=== PATIENT | female | born 1980 | race Caucasian/White ===

== ENCOUNTER 2023-06-26 01:27 | Inpatient (IN) | payer OTHER, SELFPAY ==
[2023-06-26 01:36] VITALS: BP 100/60; BP 141/68; PULSE 83; PULSE 90; RESP 20; TEMP 36.6; O2SAT 93; O2SAT 97; BMI 39.2
--- NOTE | 2023-06-26 03:11 | ED.OVERDOSE ---
HPI - Overdose General Chief Complaint: Overdose Stated Complaint: OD Time Seen by Provider: 06/26/23 03:10 Source: patient Mode of arrival: EMS Limitations: no limitations History of Present Illness HPI Narrative: Patient comes to the emergency room after overdosing using heroin. Patient admits to using heroin, denies using alcohol or any other drugs. According to the patient, she believes that her [id number] call 911, patient was given 8 mg of intranasal Narcan. Patient states that this was an accidental overdose, does not have suicidal or homicidal ideation. Otherwise feels well. No nausea or vomiting. Related Data Allergies Allergy/AdvReac Type Severity Reaction Status Date / Time No Known Allergies Allergy Verified 06/26/23 01:38 Review of Systems Review of Systems: Constitutional : No Weight loss, No Fever, No Chills, No Night Sweats, No Fatigue, No Malaise ENT/Mouth : No Hearing loss, No Ear Pain, No Nasal Congestion, No Sinus Pain, No Hoarseness, No sore throat, No Rhinorrhea, No Swallowing Difficulty Eyes: No Eye Pain, No Swelling, No Redness, No Foreign Body, No Discharge, No Vision Changes Cardiovascular : No Chest Pain, No SOB, No Dyspnea on Exertion, No Orthopnea, No Edema, No Palpitations Respiratory : No Cough, No Sputum, No Wheezing, No Smoke Exposure, No Dyspnea Gastrointestinal : No Nausea, No Vomiting, No Diarrhea, No Constipation, No abdominal Pain, No Hematochezia, No Melena Genitourinary : no irregular bleeding, No Dysuria, No Urinary Frequency, No Hematuria, No Urinary Incontinence, No Urgency, No Flank Pain, No Urinary Flow Changes, No Hesitancy Musculoskeletal : No joint pain, No Myalgias, No Joint Swelling Skin : No Skin Lesions, No rash Neuro : No Weakness, No Numbness, No Paresthesias, No Loss of Consciousness, No Dizziness, No Headache Psych : No Anxiety/Panic, No Depression, No SI/HI/AH/VH, admits to heroin abuse Heme/Lymph: No Bruising, No Bleeding,No Lymphadenopathy Endocrine : No Polyuria, No Polydipsia, No Temperature Intolerance PMFSH Past Medical History Medical History (Updated 06/26/23 @ 03:15 by Edith Trevino MD) Heroin abuse Physical Exam Vital Signs: Vital Signs: Last Vital Signs Temp 97.8 F 06/26/23 01:36 Pulse 83 06/26/23 01:36 Resp 20 06/26/23 01:36 BP 141/68 H 06/26/23 01:36 Pulse Ox 97 06/26/23 01:36 O2 Del Method Nasal Cannula 06/26/23 01:36 Oxygen Flow Rate 3.5 06/26/23 01:36 BMI result Body Mass Index 39.2 Const: Other: Appearance: Alert. Oriented X3. No acute distress. Eyes: Pupils equal, round and reactive to light. ENT: Pharynx normal. Neck: Normal inspection. Neck supple. No lymph nodes noted. No crepitus CVS: Normal heart rate and rhythm. Pulses normal. Normal S1 and S2 Respiratory: No respiratory distress. Breath sounds normal. No Wheezing. No rales Abdomen: Soft and nontender. No rigidity. No distention. Skin: Skin warm and dry. Normal skin color. Normal skin turgor. Extremities: No lower extremity edema. No Lacerations. No Rash Neuro: Oriented X 3. No motor deficit. No sensory deficit. Moving all extremities. No slurred speech. CN 2 through 12 grossly intact Psych: calm, cooperative, normal affect Medical Decision Making Medical Decision Making MDM Narrative: -patient is awake, alert and oriented x3, oxygen saturation 97% on room air. -patient denies SI or HI, blood pressure stable. -patient is not on a Section 12, not indicated. -discussed with the patient that we will observe for couple of hours, once she feels completely back to baseline and she keeps her oxygen saturation at a normal level, patient can be discharged -patient will be given home Narcan -patient states that she has not interested in resources for drug addiction. CARe team declined by patient Differential Diagnosis Differential Diagnoses: The differential diagnosis associated with the presentation includes (Polysubstance abuse, anxiety, depression) Critical Care Time Critical Care Time Critical Care Time: Yes Total Critical Care Time: 35 Attestation: I have personally provided critical care time. Time includes review of lab data, radiology results, discussion with consultants, and monitoring for potential decompensation. Intervention performed as documented. Discharge Plan Discharge Clinical Impression: Accidental drug overdose Patient Disposition: Home, Self-Care Instructions: Adult Overdose (ED) Additional Instructions: Please follow-up with your primary care physician tomorrow. If you have any worsening or new symptoms, please return to the emergency room or call 911 Print Language: [place] Island[place]
[2023-06-26 05:18] VITALS: BP 121/56; PULSE 85; RESP 16; O2SAT 94
[2023-06-26 07:21] VITALS: BP 117/60; PULSE 84; RESP 16; TEMP 37.1; O2SAT 97
--- NOTE | 2023-06-26 08:10 | PC.NURSE ---
assumed care of pt at 0700. pt sleeping soundly. rr even/unlabored. pt initially on 3L O2 via NC sating 97%. pt taken off O2. now on room air pt sating 92-94%. call oliva within reach. plan of care ongoing.
--- NOTE | 2023-06-26 08:18 | PC.NURSE ---
pt found sating 91% on room air. placed on 1L O2 now sating 94%.
[2023-06-26 12:47] LABS: Appearance Urine Cloudy; Color Urine Yellow; Glucose Urine UA >=1000 mg/dL (Negative); Leukocyte Esterase Urine Negative (Negative); Nitrite Urine Negative (Negative); PH 5.5 (5.0-9.0); Specific Gravity - Urine >= 1.030 (1.005-1.025); UMIC TRIGGER UACC YES; Urine Blood Negative (Negative); Urine Ketones Negative (Negative); Urine Protein 30 (1+) mg/dL (Neg-Trace)
[2023-06-26 12:50] LABS: Bacteria Urine None Seen (None Seen); RBC Urine 0-2 /HPF (0-2); WBC Urine 0-5 /HPF (0-5)
--- NOTE | 2023-06-26 13:15 | HO.ADDICT_ITS ---
History of Present Illness Date of Service: 06/26/2023 Chief Complaint: OD Reason for Consult: overdose Discussed with referring provider: Yes Sources of Information: patient interviewed and chart reviewed HPI Narrative: Patient is a 42 year old female seen in the ED following overdose at home requiring naloxone. Initially patient declined SUDE or any discussion with anyone regarding substance use, however this morning changed her mind. Patient seen by this press writer in main ED. Laying on stretcher, initially asleep, but woke easily to voice, and then engaged in interview. She reports many years of substance use and various levels of treatment including inpatient and outpatient. Currently engaged din treatment at [facility] --dose verified by this press writer as 45mg daily. She states she used 2 bags of heroin/fentnayl yesterday in an effort to overdose. She reports that she has struggled with suicidal feelings for many years and is just tired of feeling like I don't want to be alive anymore . Reports previous psychiatric admissions, most recent at [facility] in November. She is engaged with psychiatric provider. Identifies behavioral health and suicidal ideation as precipitant to overdose. Medical Evaluation Reviewed: Yes Review of Systems Constitutional: Reports as per HPI Diagnostics Vital Signs (24Hr): Vital Signs - 24 hr 06/26/23 01:36 06/26/23 05:18 06/26/23 07:21 Temperature 97.8 F 98.7 F Pulse Rate 83 85 84 Respiratory Rate 20 16 16 Blood Pressure 141/68 H 121/56 L 117/60 Pulse Oximetry 97 94 97 Oxygen Delivery Method Nasal Cannula Nasal Cannula Nasal Cannula Oxygen Flow Rate 3 3 BMI result Body Mass Index 39.2 Labs Labs: Laboratory Results - last 48 hr 06/26/23 12:40 Urine Color Yellow Urine Appearance Cloudy Urine pH 5.5 Ur Specific [place] >= 1.030 H Urine Protein 30 (1+) H Urine Glucose (UA) >=1000 H Urine Ketones Negative Urine Blood Negative Urine Nitrite Negative Ur Leukocyte Esterase Negative Urine RBC 0-2 Urine WBC 0-5 Ur Squamous Epith Cells 6-10 Urine Bacteria None Seen Hyaline Casts 3-5 Mental Status Exam Mental Status Exam Patient Appearance: Appropriate Level of Consciousness: Awake and Appropriate Patient Behavior: Appropriate and Talkative Mood Description: Calm Affect Description: Calm Speech Pattern: Clear Medications Allergies Allergies Allergy/AdvReac Type Severity Reaction Status Date / Time No Known Allergies Allergy Verified 06/26/23 01:38 Assessment & Plan Assessment & Plan (1) Opioid use disorder: Status: Acute Code(s): F11.90 - Opioid use, unspecified, uncomplicated Assessment and Plan: * methadone 45mg verified and ordered * ED provider made aware of suicidal ideation and patient request for crisis evaluation * no follow up indicated at this time from [facility] Total time managing care of this patient today __30__ minutes. PMFSH Past Medical History Medical History (Updated 06/26/23 @ 13:47 by Lisa Dave CNP) Heroin abuse Social History Social History Advance Directives: No
--- NOTE | 2023-06-26 13:48 | PM.EVENT ---
Event Note Date of Service: 06/26/23 Event Note: methadone verification completed by this commercial insurance underwriter MARICRUZ Ruby OTP -last in person dose 45mg on 06/20/2023 -provided 6 take home bottles with end date being today, 06/26/23 Time Spent With Patient Time: Total time managing care of this patient today ____ minutes.
[2023-06-26 14:01] LABS: MANUAL DIFF FLAG NO
[2023-06-26 14:02] LABS: Basophils Percent Auto 0.2 % (0-2); Hematocrit 31.8 % (37.0-47.0); Hemoglobin 10.5 g/dl (12.0-16.0); Imm Gran Abs Auto 0.03 X10*3/uL (0.00-0.03); Imm Gran Pct Auto 0.2 % (0.0-0.4); Lymphocytes Absolute Auto 1.7 X10*3/uL (1.2-4.9); Lymphocytes Percent Auto 13.2 % (20-40); Mean Corpuscular Hemoglobin 26.6 pg (27.0-33.0); Mean Corpuscular Volume 80.5 fL (80.0-98.0); Mean Platelet Volume 9.1 fL (9.4-12.3); Monocytes Absolute Auto 0.7 X10*3/uL (0.1-1.2); Monocytes Percent Auto 5.2 % (2-11); Neutrophils Absolute Auto 10.7 x10*3/uL (2.0-8.3); Neutrophils Percent Auto 81.2 % (45-73); Platelet Count 281 X10*3/uL (160-400); Red Blood Count 3.95 X10*6/uL (4.20-5.50); Red Cell Distribution Width 13.1 % (11.0-16.0); White Blood Count 13.2 X10*3/uL (4.8-10.8)
--- NOTE | 2023-06-26 14:15 | PC.NURSE ---
PT TRANSFERRED TO ED POD.
[2023-06-26] MEDS: methADONE HCl 20 MG/2 ML ORAL.CONC 45 MG PO (14:16)
[2023-06-26 14:19] LABS: Alanine Aminotransferase 12 U/L (0-31); Albumin Level 3.5 g/dL (3.5-5.0); Alkaline Phosphatase 72 U/L (39-117); Anion Gap 10 (12-20); Aspartate Amino Transferase 16 U/L (5-31); Bilirubin Total 0.3 mg/dL (0.0-1.0); Blood Urea Nitrogen 13 mg/dL (9-16); Calcium 8.3 mg/dL (8.4-10.2); Carbon Dioxide 24 mmol/L (22-29); Chloride 108 mmol/L (96-108); Creatinine Clr Calc Pharmacy 156.1; Estimated Glomerular Filt Rate > 60; Glucose Random 100 mg/dL (60-115); Potassium 4.2 mmol/L (3.3-5.1); Sodium 138 mmol/L (135-145)
[2023-06-26 14:20] LABS: Amphetamine Screen Urine Not Detected (Not Detect); Barbiturates, Urine Not Detected (Not Detect); Benzodiazepines Screen Urine Not Detected (Not Detect); Cannabinoid Screen Urine Not Detected (Not Detect); Cocaine Screen Urine POSITIVE (Not Detect); Fentanyl, urine POSITIVE (Not Detect); Opiate Screen Urine POSITIVE (Not Detect); Phencyclidine Screen Urine POSITIVE (Not Detect)
[2023-06-26 15:08] VITALS: BP 120/47; PULSE 74; RESP 17; TEMP 36.6; O2SAT 92
--- NOTE | 2023-06-26 17:40 | PC.NURSE ---
PT SEEN BY CARE TEAM, PT AWARE OF PLAN OF CARE. PT IS AN INPATIENT BED SEARCH.
[2023-06-26 17:56] VITALS: O2SAT 96
--- NOTE | 2023-06-26 18:11 | MHC.CARE ---
CARE Team evaluation complete. Pt is an [facility] bedsearch and is on a section 12A for safety. ED provider, POD RN and Pt are aware of disposition.
[2023-06-27 00:03] VITALS: RESP 16
--- NOTE | 2023-06-27 00:14 | PC.NURSE ---
Patient appears to be sleeping, respirations even and unlabored, no apparent distress at this time
[2023-06-27 03:05] VITALS: BP 143/57; PULSE 73; RESP 18; TEMP 36.6; O2SAT 94
--- NOTE | 2023-06-27 07:32 | PHA.MEDREC ---
Pharmacy Consult ? Medication Reconciliation Pharmacy has completed the medication reconciliation. Reviewed med rec done by nursing
--- NOTE | 2023-06-27 07:39 | HE.PHANOTE ---
RE: methadone confirmed by Lisa Dave last dose take home 45mg on 06/25
[2023-06-27] MEDS: ARIPiprazole 10 MG TABLET PO (07:52)
[2023-06-27] MEDS: OXcarbazepine 300 MG TABLET 600 MG PO (07:52)
[2023-06-27] MEDS: FLUoxetine HCl 20 MG CAPSULE 60 MG PO (07:53)
[2023-06-27] MEDS: hydrOXYzine HCL 50 MG TABLET PO (07:53)
[2023-06-27] MEDS: methADONE HCl 20 MG/2 ML ORAL.CONC 45 MG PO (07:54)
[2023-06-27 08:16] LABS: COVID-19 Test Negative (Negative); IDNOW Serial# 08D9AD1C
--- NOTE | 2023-06-27 09:29 | ECG_ITS ---
Test Reason : qt interval Blood Pressure : / mmHG Vent. Rate : 065 BPM Atrial Rate : 065 BPM P-R Int : 136 ms QRS Dur : 084 ms QT Int : 444 ms P-R-T Axes : 048 042 026 degrees QTc Int : 461 ms Normal sinus rhythm Normal ECG No previous ECGs available Referred By: Edith Trevino Electronically Signed By:Wicho Lee
[2023-06-27 11:50] VITALS: BP 119/38; PULSE 70; RESP 16; TEMP 36.4; O2SAT 94
--- NOTE | 2023-06-27 13:17 | PC.NURSE ---
assumed care of pt at 0700. pt a&o x4, pleasant, calm, and cooperative. pt denies SI/HI although tried to intentionally overdose 2 nights ago. pt ambulates independently and makes needs known. pt offers no complaints. vss. inpatient nurse to nurse report complete. pt to go to inpatient room shortly. pt updated. pt currently eating lunch. rr even/unlabored. plan of care ongoing.
[2023-06-27 14:10] VITALS: BP 107/63; RESP 18
--- NOTE | 2023-06-27 14:13 | PC.NURSE ---
pt BP rechecked. 107/63 with 75 pulse. ANGELA Dow aware. pt transport to unit [facility].
[2023-06-27 14:30] VITALS: BP 128/58; PULSE 74; RESP 18
[2023-06-27 14:31] VITALS: BMI 39.0
--- NOTE | 2023-06-27 14:31 | PC.NURSE ---
Addendum entered by Emma Espino RN 06/27/23 14:33: Arrived at 1420. Original Note: Pt arrived to the unit via wheelchair by staff. Safety check completed. Vitals obtained. Pt oriented to unit. Placed on 15 minute safety checks. Admission to be completed.
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
[2023-06-27] MEDS: OLANZapine 5 MG TABLET PO ×2 (18:03→20:25)
[2023-06-27 18:30] VITALS: BP 152/62; PULSE 79; RESP 18; TEMP 37.1; O2SAT 97
[2023-06-27] MEDS: traZODone HCL 50 MG TABLET 150 MG PO (20:26)
[2023-06-28 06:00] VITALS: BP 133/84; PULSE 66; TEMP 36.4; O2SAT 96
[2023-06-28] MEDS: methADONE HCl 20 MG/2 ML ORAL.CONC 45 MG PO (08:57)
[2023-06-28] MEDS: hydrOXYzine HCL 50 MG TABLET PO ×3 (08:59→19:35)
[2023-06-28] MEDS: OXcarbazepine 300 MG TABLET 600 MG PO (08:59)
[2023-06-28] MEDS: ARIPiprazole 10 MG TABLET PO (08:59)
[2023-06-28] MEDS: FLUoxetine HCl 20 MG CAPSULE 60 MG PO (08:59)
[2023-06-28 09:21] LABS: Estimated Average Glucose 108 mg/dL; Hemoglobin A1c % 5.4 % (<6.0)
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
[2023-06-28 10:03] LABS: Cholesterol 197 mg/dL (<200); HDL Cholesterol 68 mg/dL (>40); LDL Cholesterol Calculated 112 mg/dL (<100); Triglycerides 87 mg/dL (<150)
[2023-06-28 18:00] VITALS: BP 134/60; PULSE 71; RESP 18; TEMP 36.9; O2SAT 97
[2023-06-28] MEDS: cloNIDine HCL 0.1 MG TABLET PO (18:22)
[2023-06-28] MEDS: traZODone HCL 50 MG TABLET 150 MG PO (19:34)
[2023-06-29] MEDS: cloNIDine HCL 0.1 MG TABLET PO ×4 (03:35→21:11)
[2023-06-29 07:40] VITALS: BP 121/66; PULSE 67; RESP 18; TEMP 36.9; O2SAT 96
[2023-06-29] MEDS: hydrOXYzine HCL 50 MG TABLET PO ×2 (08:21→21:16)
[2023-06-29] MEDS: OXcarbazepine 300 MG TABLET 600 MG PO (08:21)
[2023-06-29] MEDS: FLUoxetine HCl 20 MG CAPSULE 60 MG PO (08:21)
[2023-06-29] MEDS: ARIPiprazole 10 MG TABLET PO (08:21)
[2023-06-29] MEDS: methADONE HCl 20 MG/2 ML ORAL.CONC 45 MG PO (08:35)
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
[2023-06-29] MEDS: OLANZapine 5 MG TABLET PO ×2 (13:24→21:11)
[2023-06-29] MEDS: FLUoxetine HCl 20 MG CAPSULE PO (15:38)
[2023-06-29 21:09] VITALS: BP 108/54; PULSE 70; RESP 18; TEMP 37; O2SAT 97
[2023-06-29] MEDS: traZODone HCL 50 MG TABLET PO (21:11)
[2023-06-29] MEDS: traZODone HCL 50 MG TABLET 150 MG PO (21:11)
[2023-06-29] MEDS: Acetaminophen 325 MG TABLET 650 MG PO (21:11)
[2023-06-30] MEDS: cloNIDine HCL 0.1 MG TABLET PO ×3 (05:11→20:33)
[2023-06-30 05:13] VITALS: BP 112/54; PULSE 65; RESP 16
[2023-06-30 08:46] VITALS: BP 106/51; PULSE 65; RESP 17; TEMP 36.6; O2SAT 96
[2023-06-30] MEDS: ARIPiprazole 10 MG TABLET PO (08:59)
[2023-06-30] MEDS: OXcarbazepine 300 MG TABLET 600 MG PO (09:00)
[2023-06-30] MEDS: FLUoxetine HCl 20 MG CAPSULE 80 MG PO (09:00)
[2023-06-30] MEDS: methADONE HCl 20 MG/2 ML ORAL.CONC 45 MG PO (09:01)
[2023-06-30] MEDS: OLANZapine 5 MG TABLET PO (12:05)
[2023-06-30 12:07] VITALS: BP 107/54; PULSE 61
--- NOTE | 2023-06-30 12:12 | PC.NURSE ---
Ami reported she was feeling increasingly agitated and anxious when around peer Myrtle Persaud. She requested prn Zyprexa and Clonidine. Maintaining behavioral control and distracting self with TV/use of medication.
[2023-06-30 18:00] VITALS: BP 121/69; PULSE 62; RESP 20; TEMP 36.8; O2SAT 95
[2023-06-30] MEDS: traZODone HCL 50 MG TABLET 150 MG PO (20:33)
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
[2023-07-01 08:13] VITALS: BP 120/61; PULSE 65; RESP 17; TEMP 37.1; O2SAT 97
[2023-07-01] MEDS: methADONE HCl 20 MG/2 ML ORAL.CONC 45 MG PO (08:25)
[2023-07-01] MEDS: FLUoxetine HCl 20 MG CAPSULE 80 MG PO (08:25)
[2023-07-01] MEDS: Propranolol HCL 10 MG TABLET PO ×2 (08:26→11:35)
[2023-07-01] MEDS: OXcarbazepine 300 MG TABLET 600 MG PO (08:26)
[2023-07-01] MEDS: ARIPiprazole 10 MG TABLET PO (08:27)
[2023-07-01] MEDS: hydrOXYzine HCL 50 MG TABLET PO (08:27)
[2023-07-01 18:43] VITALS: BP 111/61; PULSE 64; RESP 19; TEMP 36.9; O2SAT 97
[2023-07-01] MEDS: cloNIDine HCL 0.1 MG TABLET PO (20:38)
[2023-07-01] MEDS: traZODone HCL 50 MG TABLET 150 MG PO (20:38)
[2023-07-01] MEDS: OLANZapine 5 MG TABLET PO (20:38)
--- NOTE | 2023-07-01 22:17 | HO.PHPPROGNO ---
Subjective Subjective Date of Service: 07/01/23 Reason For Visit: OD Diagnostics Vital Signs (24Hr): Vital Signs - 24 hr 07/01/23 08:13 07/01/23 18:43 Temperature 98.8 F 98.5 F Pulse Rate 65 64 Respiratory Rate 17 19 Blood Pressure 120/61 111/61 Pulse Oximetry 97 97 Oxygen Delivery Method Room Air Room Air BMI result Body Mass Index 39.0 Labs 06/26/23 13:57 06/26/23 13:57 Assessment & Plan Certification I certify that partial hospital treatment is medically necessary due to the symptoms and problems resulting from the patient's mental illness and the failure to treat the patient at the partial hospital level of care would likely result in the patient requiring inpatient psychiatric care which could not be prevented at a less intensive level of care. Total time managing care of this patient today ____ minutes. Discharge Plan Discharge Referrals: Physician,None [Primary Care Provider] - 1 Week Discharge Medications: No Action hydroxyzine HCl 50 mg tablet 50 mg PO TID trazodone 150 mg tablet 150 mg PO BEDTIME oxcarbazepine 600 mg tablet 600 mg PO DAILY methadone 10 mg/mL Concentrate 45 mg PO DAILY Patient Comments: see Lisa Dave's provider documentation regarding last dose fluoxetine 20 mg capsule 60 mg PO QAM aripiprazole 10 mg tablet 10 mg PO DAILY Print Language: Albanian Activity Restrictions/Additional Instructions: Please follow-up with your primary care physician tomorrow. If you have any worsening or new symptoms, please return to the emergency room or call 911 Patient Instructions: Adult Overdose (ED)
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
[2023-07-02 06:00] VITALS: BP 114/62; PULSE 62; RESP 18; TEMP 36.9; O2SAT 98
[2023-07-02] MEDS: Propranolol HCL 10 MG TABLET PO (08:51)
[2023-07-02] MEDS: OXcarbazepine 300 MG TABLET 600 MG PO (08:51)
[2023-07-02] MEDS: methADONE HCl 20 MG/2 ML ORAL.CONC 45 MG PO (08:51)
[2023-07-02] MEDS: FLUoxetine HCl 20 MG CAPSULE 80 MG PO (08:51)
[2023-07-02] MEDS: ARIPiprazole 10 MG TABLET PO (08:51)
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
[2023-07-02] MEDS: hydrOXYzine HCL 50 MG TABLET PO ×2 (15:15→20:26)
[2023-07-02] MEDS: OLANZapine 5 MG TABLET PO ×2 (15:15→20:27)
[2023-07-02 18:00] VITALS: BP 143/75; PULSE 97; TEMP 37.2; O2SAT 97
[2023-07-02] MEDS: traZODone HCL 50 MG TABLET 150 MG PO (20:25)
[2023-07-02] MEDS: cloNIDine HCL 0.1 MG TABLET PO (20:27)
[2023-07-03] MEDS: FLUoxetine HCl 20 MG CAPSULE 80 MG PO (08:19)
[2023-07-03] MEDS: ARIPiprazole 10 MG TABLET PO (08:19)
[2023-07-03] MEDS: OXcarbazepine 300 MG TABLET 600 MG PO ×2 (08:20→21:23)
[2023-07-03] MEDS: methADONE HCl 20 MG/2 ML ORAL.CONC 45 MG PO (08:21)
[2023-07-03 09:16] LABS: TSH reflex Free T4 1.33 uIU/mL (0.32-4.0)
[2023-07-03 09:25] VITALS: BP 120/57; PULSE 76; RESP 20; TEMP 36.9; O2SAT 96
[2023-07-03] MEDS: Propranolol HCL 10 MG TABLET PO ×2 (09:26→14:00)
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
[2023-07-03 13:55] VITALS: BP 113/55; PULSE 65
[2023-07-03 14:00] VITALS: BP 113/65
--- NOTE | 2023-07-03 16:57 | PC.NURSE ---
Ami has been napping on and off this shift. Reports she is trying to catch up on her sleep since she had not been sleeping well the past several nights. Pleasant on approach and compliant with medication regimen.
[2023-07-03] MEDS: traZODone HCL 50 MG TABLET 150 MG PO (21:23)
[2023-07-03] MEDS: cloNIDine HCL 0.1 MG TABLET PO (21:24)
[2023-07-03] MEDS: OLANZapine 2.5 MG TABLET PO (21:24)
[2023-07-03] MEDS: hydrOXYzine HCL 50 MG TABLET PO (21:31)
[2023-07-04 08:01] VITALS: BP 107/55; PULSE 66; RESP 16; TEMP 36.4; O2SAT 98
[2023-07-04] MEDS: FLUoxetine HCl 20 MG CAPSULE 80 MG PO (08:28)
[2023-07-04] MEDS: methADONE HCl 20 MG/2 ML ORAL.CONC 45 MG PO (08:28)
[2023-07-04] MEDS: ARIPiprazole 10 MG TABLET PO (08:28)
[2023-07-04] MEDS: OXcarbazepine 300 MG TABLET 600 MG PO ×2 (08:28→20:51)
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
[2023-07-04 11:37] VITALS: BP 106/62
[2023-07-04] MEDS: cloNIDine HCL 0.1 MG TABLET PO ×2 (11:37→20:28)
[2023-07-04] MEDS: OLANZapine 2.5 MG TABLET PO ×3 (11:39→20:28)
[2023-07-04 20:00] VITALS: BP 112/56
[2023-07-04] MEDS: traZODone HCL 50 MG TABLET 150 MG PO (20:51)
[2023-07-05] MEDS: OLANZapine 2.5 MG TABLET PO ×4 (04:50→20:14)
[2023-07-05] MEDS: hydrOXYzine HCL 50 MG TABLET PO ×3 (04:50→20:11)
[2023-07-05] MEDS: cloNIDine HCL 0.1 MG TABLET PO ×3 (04:50→20:12)
[2023-07-05] MEDS: FLUoxetine HCl 20 MG CAPSULE 80 MG PO (08:14)
[2023-07-05] MEDS: OXcarbazepine 300 MG TABLET 600 MG PO ×2 (08:15→20:12)
[2023-07-05] MEDS: ARIPiprazole 10 MG TABLET PO (08:15)
[2023-07-05] MEDS: methADONE HCl 20 MG/2 ML ORAL.CONC 45 MG PO (08:16)
[2023-07-05 08:18] VITALS: BP 100/53; PULSE 62; RESP 18; TEMP 36.6; O2SAT 96
[2023-07-05] MEDS: Nystatin Cream 15 GM TUBE 1 APPL TOPICAL ×2 (15:26→20:15)
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
[2023-07-05 17:22] VITALS: BP 145/92
--- NOTE | 2023-07-05 17:54 | PC.NURSE ---
Pt continues to use prns for anxiety and agitation. She reported a red rash that looks fungal in nature under her belly folds/right groin, and was started on nystatin ointment TID. Pt socializing in kitchen at times and otherwise napping in room.
[2023-07-05 20:06] VITALS: BP 107/57; PULSE 74; RESP 17; TEMP 36.8; O2SAT 96
[2023-07-05 20:12] VITALS: BP 107/57
[2023-07-05] MEDS: traZODone HCL 50 MG TABLET 150 MG PO (20:12)
[2023-07-06 05:50] VITALS: BP 111/57
[2023-07-06] MEDS: cloNIDine HCL 0.1 MG TABLET PO ×2 (05:50→20:17)
[2023-07-06] MEDS: hydrOXYzine HCL 50 MG TABLET PO ×3 (05:51→20:17)
[2023-07-06 08:00] VITALS: BP 107/64; PULSE 67; RESP 18; TEMP 36.8; O2SAT 97
[2023-07-06] MEDS: ARIPiprazole 10 MG TABLET PO (08:54)
[2023-07-06] MEDS: OXcarbazepine 300 MG TABLET 600 MG PO ×2 (08:54→20:17)
[2023-07-06] MEDS: FLUoxetine HCl 20 MG CAPSULE 80 MG PO (08:54)
[2023-07-06] MEDS: methADONE HCl 20 MG/2 ML ORAL.CONC 45 MG PO (08:56)
[2023-07-06] MEDS: Nystatin Cream 15 GM TUBE 1 APPL TOPICAL (10:26)
[2023-07-06] MEDS: OLANZapine 2.5 MG TABLET PO ×2 (13:57→20:17)
[2023-07-06 20:00] VITALS: BP 109/59; PULSE 69; RESP 17; TEMP 36.5; O2SAT 97
[2023-07-06] MEDS: traZODone HCL 50 MG TABLET 150 MG PO (20:17)
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
[2023-07-07 03:14] VITALS: BP 101/51
[2023-07-07] MEDS: cloNIDine HCL 0.1 MG TABLET PO ×3 (03:14→20:35)
[2023-07-07] MEDS: traZODone HCL 50 MG TABLET PO (03:14)
[2023-07-07 08:00] VITALS: BP 105/52; PULSE 77; RESP 16; TEMP 36.9; O2SAT 98
[2023-07-07] MEDS: FLUoxetine HCl 20 MG CAPSULE 80 MG PO (08:38)
[2023-07-07] MEDS: ARIPiprazole 10 MG TABLET PO (08:38)
[2023-07-07] MEDS: methADONE HCl 20 MG/2 ML ORAL.CONC 45 MG PO (08:39)
[2023-07-07] MEDS: OXcarbazepine 300 MG TABLET 600 MG PO ×2 (08:39→20:35)
[2023-07-07] MEDS: Nystatin Cream 15 GM TUBE 1 APPL TOPICAL (08:56)
[2023-07-07 10:15] VITALS: BP 107/60; PULSE 75
[2023-07-07] MEDS: hydrOXYzine HCL 50 MG TABLET PO ×2 (10:18→20:35)
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
[2023-07-07] MEDS: OLANZapine 2.5 MG TABLET PO ×2 (13:31→20:35)
[2023-07-07 20:00] VITALS: BP 97/55; PULSE 70; RESP 16; TEMP 36.4; O2SAT 97
[2023-07-07] MEDS: traZODone HCL 50 MG TABLET 150 MG PO (20:35)
[2023-07-08] MEDS: traZODone HCL 50 MG TABLET PO (03:40)
[2023-07-08 08:00] VITALS: BP 129/61; PULSE 86; TEMP 36.9; O2SAT 97
[2023-07-08 08:23] VITALS: BP 129/60
[2023-07-08] MEDS: ARIPiprazole 10 MG TABLET PO (08:23)
[2023-07-08] MEDS: FLUoxetine HCl 20 MG CAPSULE 80 MG PO (08:23)
[2023-07-08] MEDS: OXcarbazepine 300 MG TABLET 600 MG PO ×2 (08:23→20:59)
[2023-07-08] MEDS: cloNIDine HCL 0.1 MG TABLET PO ×2 (08:23→21:00)
[2023-07-08] MEDS: OLANZapine 2.5 MG TABLET PO ×3 (08:24→21:00)
[2023-07-08] MEDS: methADONE HCl 20 MG/2 ML ORAL.CONC 45 MG PO (08:24)
[2023-07-08] MEDS: hydrOXYzine HCL 50 MG TABLET PO (08:24)
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
[2023-07-08 20:50] VITALS: BP 118/53; PULSE 81; TEMP 36.6; O2SAT 94
[2023-07-08] MEDS: traZODone HCL 50 MG TABLET 150 MG PO (20:58)
[2023-07-09] MEDS: OLANZapine 2.5 MG TABLET PO ×4 (02:53→20:39)
[2023-07-09] MEDS: traZODone HCL 50 MG TABLET PO (02:53)
[2023-07-09 08:00] VITALS: BP 118/56; PULSE 71; RESP 18; TEMP 36.9; O2SAT 98
[2023-07-09] MEDS: methADONE HCl 20 MG/2 ML ORAL.CONC 45 MG PO (08:29)
[2023-07-09] MEDS: ARIPiprazole 10 MG TABLET PO (08:30)
[2023-07-09] MEDS: OXcarbazepine 300 MG TABLET 600 MG PO ×2 (08:30→20:39)
[2023-07-09] MEDS: FLUoxetine HCl 20 MG CAPSULE 80 MG PO (08:30)
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
[2023-07-09] MEDS: Nystatin Cream 15 GM TUBE 1 APPL TOPICAL ×2 (10:18→18:56)
[2023-07-09] MEDS: hydrOXYzine HCL 50 MG TABLET PO ×2 (10:52→20:39)
[2023-07-09 20:00] VITALS: BP 139/77; PULSE 84; TEMP 36.7; O2SAT 98
[2023-07-09] MEDS: cloNIDine HCL 0.1 MG TABLET PO ×2 (20:39)
[2023-07-09] MEDS: traZODone HCL 50 MG TABLET 150 MG PO (20:39)
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
[2023-07-10 08:00] VITALS: BP 103/58; PULSE 70; TEMP 36.9; O2SAT 98
[2023-07-10] MEDS: Naloxone HCl Nasal TAKE HOME 4 MG SPRAY 8 MG NOSTRILALT (08:19)
[2023-07-10] MEDS: ARIPiprazole 10 MG TABLET PO (08:19)
[2023-07-10] MEDS: hydrOXYzine HCL 50 MG TABLET PO (08:19)
[2023-07-10] MEDS: FLUoxetine HCl 20 MG CAPSULE 80 MG PO (08:19)
[2023-07-10] MEDS: OXcarbazepine 300 MG TABLET 600 MG PO (08:19)
[2023-07-10] MEDS: methADONE HCl 20 MG/2 ML ORAL.CONC 45 MG PO (08:19)
[2023-07-10] MEDS: Nystatin Cream 15 GM TUBE 1 APPL TOPICAL (08:20)
== END 2023-07-10 10:25 | disposition home or self-care (01) | DRG 751 ==
LOC: HO.ED 14:25 → HO.PM5 06-27 13:00
PROVIDERS: Physician Assistant Medical; Admitting Provider Psychiatry & Neurology Psychiatry; Emergency Provider Emergency Medicine; Visit Provider Psychiatry & Neurology Psychiatry
DX: F33.2 Major depressive disorder, recurrent severe without psychotic features (principal); F11.20 Opioid dependence, uncomplicated; T40.1X2A Poisoning by heroin, intentional self-harm, initial encounter; F41.1 Generalized anxiety disorder; F17.210 Nicotine dependence, cigarettes, uncomplicated; F43.10 Post-traumatic stress disorder, unspecified; Z20.822 Contact with and (suspected) exposure to COVID-19; Z71.6 Tobacco abuse counseling; Z79.899 Other long term (current) drug therapy
CPT/HCPCS: 36415; 80053; 80061; 80307; 81001; 83036; 84443; 85025; 87635; 93005; 99285; S9485

== ENCOUNTER → 2023-06-26 03:25 | Outpatient (BNV) | payer OTHER, SELFPAY | PROVIDERS: Emergency Provider Emergency Medicine; Visit Provider Nurse Practitioner Psychiatric/Mental Health | DX: F33.2 Major depressive disorder, recurrent severe without psychotic features (principal); F41.1 Generalized anxiety disorder; F43.11 Post-traumatic stress disorder, acute | CPT/HCPCS: 90792; 99231; 99232; 99239; 99282; 99499; G2213 ==

== ENCOUNTER → 2023-06-27 09:29 | Outpatient (BNV) | payer OTHER, SELFPAY | PROVIDERS: Admitting Provider Psychiatry & Neurology Psychiatry; Emergency Provider Emergency Medicine; Visit Provider Internal Medicine Cardiovascular Disease | DX: F11.90 Opioid use, unspecified, uncomplicated (principal); R45.851 Suicidal ideations | CPT/HCPCS: 93010 ==